=== PATIENT | female | born 1955 | race Two or more races ===

== ENCOUNTER 2024-10-19 17:02 | Emergency (ER) | payer OTHER ==
[~2024-10-19] VITALS: Ht 170.2 cm; Wt 78.5 kg
[2024-10-19] MEDS ORDERED: VALSARTAN80 MG PO (17:19)
[2024-10-19] MEDS ORDERED: ASPIRIN 325 MG TABLET.EC PO STA (17:39)
[2024-10-19 18:18] LABS: BASO % 0.8 % (0.1-1.2); EOS # 0.23 (0.04-0.54); HEMATOCRIT 39.9 % (34.1-44.9); HEMOGLOBIN 13.9 g/dL (11.2-15.7); LYMPH # 2.12 (1.18-3.74); MONO # 0.41 (0.24-0.82); MONO % 5.4 % (4.7-12.5); NEUT # 4.72 (1.56-6.13); NEUT % 62.5 % (34.0-71.1); PLATELET COUNT 222 K/uL (163-369); RED BLOOD COUNT 4.49 M/uL (3.93-5.22); RED CELL DISTRIBUTION WIDTH 12.1 % (11.6-14.4)
[2024-10-19 19:36] LABS: CALCIUM 10.3 mg/dL (8.5-10.1); CREATININE SERUM 1.01 mg/dL (0.55-1.02); GFR 54.51; POTASSIUM 4.23 mEq/L (3.5-5.1)
[2024-10-19 19:37] LABS: INR 1.02; PARTIAL THROMBOPLASTIN TIME 23.4 SECONDS (22.0-34.0); PROTHROMBIN TIME 11.1 SECONDS (9.0-11.5)
[2024-10-19] MEDS ORDERED: CLONIDINE HCL 0.1 MG TABLET PO ONE (19:57)
[2024-10-19] MEDS ORDERED: cloNIDine HCL 0.2 MG TABLET PO ONE (20:00)
== END 2024-10-19 23:00 | disposition home or self-care (01) ==
LOC: ER 20:46
PROVIDERS: Emergency Medicine
DX: I10 Essential (primary) hypertension (principal)